=== PATIENT | male | born 1940 | race Caucasian/White ===

== ENCOUNTER → 2019-08-24 | Outpatient (CLI) | payer OTHER ==
[~2019-08-24] MED LIST: ADVIL200 M1 PO; ASPIR 8181 MG PO; ASPIRIN325 PO; COQ-10100 MG PO; COZAAR 50 MG TA50 M2 PO; FLOMAX0.4 MG PO; LIPITOR 20 MG T20 M1 PO; LISINOPRIL20 MG PO; PLAVIX 75 MG TA75 M1 PO; TOPROL XL25 MG PO
== END ==
LOC: SJCVC 08:00
PROVIDERS: ATTEND Nuclear Medicine Nuclear Cardiology
DX: I25.10 Atherosclerotic heart disease of native coronary artery without angina pectoris (principal); I73.9 Peripheral vascular disease, unspecified; I12.9 Hypertensive chronic kidney disease with stage 1 through stage 4 chronic kidney disease, or unspecified chronic kidney disease; N18.9 Chronic kidney disease, unspecified; E78.00 Pure hypercholesterolemia, unspecified; Z96.653 Presence of artificial knee joint, bilateral; Z79.899 Other long term (current) drug therapy

== ENCOUNTER 2019-09-03 10:08 | Inpatient (IN) | payer OTHER ==
[~2019-09-03] VITALS: Ht 177.8 cm; Wt 91.6 kg
[~2019-09-03 10:08] MED LIST changes: -ADVIL200 M1 PO; -ASPIR 8181 MG PO; -COQ-10100 MG PO; -FLOMAX0.4 MG PO
[2019-09-03 10:46] LABS: HEMATOCRIT 44.6 % (42.0-52.0); HEMOGLOBIN 14.9 gm/dL (14.0-18.0); MCH 29.7 pg (26.0-34.0); MCHC 33.5 g/dL (28.0-37.0); MCV 88.9 fL (80.0-100.0); RBC 5.01 mil/uL (4.50-6.00); RDW 13.8 % (10.5-14.5); WBC 8.7 thou/uL (4.0-11.0)
[2019-09-03 10:50] VITALS: BP 118/77
[2019-09-03 10:56] LABS: CALCIUM 9.4 mg/dL (8.5-10.1); CREATININE 1.7 mg/dL (0.7-1.3); POTASSIUM 4.1 mmol/L (3.5-5.1)
--- NOTE | 2019-09-03 10:57 | EKG ---
[facility] [place] [address] ELECTROCARDIOGRAM REPORT Name: RADHA MEDEROSWAYNE Room #: REG ELAYNE Esteban#: [id number] Admission: 09/03/19 Attend Phys: Wallace Urban MD, Discharge: Date of : 38 Report #: [id number] THIS REPORT FOR: cc: Radhames Garcia,Artem Fernando MD ~ THIS REPORT FOR: //name// [facility] Test Date: 2019-09-03 Test Time: 10:38:44 Pat Name: YUDELKA MEDEROS Department: Room: Gender: Loss Prevention Investigator: Amarilis BATEMAN : 1940 Requested By: Wallace Urban Order Number: [id number] MD: Artem Collazo Measurements Intervals [place] Rate: 69 P: 10 WI: 216 QRS: 6 QRSD: 97 T: -8 QT: 388 QTc: 416 Interpretive Statements Sinus rhythm Multiple ventricular premature complexes Borderline prolonged WI interval Borderline T abnormalities, inferior leads Compared to ECG 02/01/2015 07:53:34 Ventricular premature complex(es) now present T-wave abnormality now present Myocardial infarct finding no longer present Electronically Signed On 09-03-2019 10:56:27 CDT by Artem Collazo [email or web address] <ELECTRONICALLY SIGNED> By: Artem Collazo MD 09/03/19 1056 1038 1038 Artem Collazo MD /EPI
[2019-09-03] MEDS ORDERED: COQ-10100 MG PO (11:31)
[2019-09-03 14:38] LABS: HEMATOCRIT 42.2 % (42.0-52.0); HEMOGLOBIN 14.2 gm/dL (14.0-18.0); MCHC 33.7 g/dL (28.0-37.0); MCV 89.1 fL (80.0-100.0); RBC 4.74 mil/uL (4.50-6.00); WBC 7.8 thou/uL (4.0-11.0)
[2019-09-03 14:51] LABS: INR 1.1; PROTIME 10.9 Seconds (9.3-11.4)
--- NOTE | 2019-09-03 15:23 | NUR ---
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 A&OX4, EDUCATION GIVEN ON RESTRICTIONS, WATER READY, AWAITING ORDERS FOR DIET. SEE FLOW SHEET FOR VS. IVF TO RUN AND PT ABLE TO BE UP ANYTIME AFTER 515PM. SEE SEPARATE INTERVENTIONS FOR ASSESSMENTS, SCRATCH ON LLE FROM A FALL
[2019-09-03 15:25] VITALS: BP 154/76
[2019-09-03] MEDS ORDERED: ADVIL200 M1 PO (15:42)
[2019-09-03 20:55] VITALS: BP 143/70
[2019-09-03 23:48] VITALS: BP 152/82
[2019-09-04 03:56] VITALS: BP 136/86
--- NOTE | 2019-09-04 05:03 | NUR ---
ASSUMED PT CARE AT 1900. PT IS ALERT AND ORIENTED. PT IS PLESANT. PT IS STABLE. RIGHT GROIN SITE INTACT. DENIES ANY PAIN. PT VERBALIZED NAUSEA. NAUSEA MEDICATION ADMNISTERED TO PT. ASSESSMENT COMPLETED AND DOCUMENTED. SCHEDULED MEDS ADMINISTERED TO PT. CONTINUE TO MONITOR PT.
[2019-09-04 05:23] LABS: HEMATOCRIT 40.7 % (42.0-52.0); HEMOGLOBIN 13.8 gm/dL (14.0-18.0); MCH 30.2 pg (26.0-34.0); MCHC 33.9 g/dL (28.0-37.0); MCV 89.2 fL (80.0-100.0); RBC 4.56 mil/uL (4.50-6.00); RDW 13.8 % (10.5-14.5); WBC 10.7 thou/uL (4.0-11.0)
[2019-09-04 05:40] LABS: CALCIUM 8.7 mg/dL (8.5-10.1); CREATININE 1.4 mg/dL (0.7-1.3); POTASSIUM 3.9 mmol/L (3.5-5.1)
[2019-09-04 08:00] VITALS: BP 145/75
[2019-09-04 12:00] VITALS: BP 127/79
--- NOTE | 2019-09-04 12:14 | EKG ---
[facility] [place] [address] ELECTROCARDIOGRAM REPORT Name: YUDELKA MEDEROS Room #: [facility] M.R.#: [id number] Admission: 09/03/19 Attend Phys: Wallace Urban MD, Discharge: Date of : 38 Report #: [id number] THIS REPORT FOR: cc: Radhames Garcia James L. DO Couchonnal, Luis F. 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
[2019-09-04 16:22] VITALS: BP 126/72
--- NOTE | 2019-09-04 16:48 | NUR ---
RECEIVED PT'S CARE AROUND 0735; PT. ON BED; SLEEP INTERRUMPTED DURING SHIFT CHANGE; DURING AM ASSESSMENT PT. AOX4; NO C/O PAIN; AM MEDICATIONS GIVEN; EDUCATED ABOUT FALL PREVENTIONS; ST. UNDERSTANDING; HOSPITAL SUCKS PROVIDED; C/O SOME CONSTIPATION; ACCOUNT ADJUSTER RESERVATIONS SALES AGENT NOTIFIED; ORDERS RECEIVED; HEPARING GTT ADJUSTED PER PROTOCOL; MONITORING; SR ON THE MONITOR; MRSA NEGATIVE; ASSESSMENT CHARGED; FOLLOWING POC; WILL PASS ON REPORT;
[2019-09-04 20:33] VITALS: BP 142/75
[2019-09-05] VITALS: BP 124/58
[2019-09-05 04:50] VITALS: BP 164/82
--- NOTE | 2019-09-05 06:25 | NUR ---
PATIENTS CARES WERE ASSUMED AT SHIFT CHANGE. PATIENT WAS ASSESSED AND MEDS WERE PASSED. PATIENT CONTINUES ON A HEPIRINE GTT. HIS APTT THIS MORNING WAS 62.2. NO CHANGES NEEDED AT THIS TIME. PATIENT GETS VERY TACHY WALKING TO THE RESTROOM. ENCOURAGED HIM TO USE THE URINAL AT THIS TIME. HOURLY ROUNDS WERE HOLLIS. THE BED IS IN A LOW AND LOCKED POSITION.
[2019-09-05 07:58] VITALS: BP 131/59
--- NOTE | 2019-09-05 08:15 | HC ---
[facility] [place] [address] CONSULTATION Name: YUDELKA MEDEROS Room #: [address] [place] [address] ELAYNE Wick#: [id number] Admission: 09/03/19 Attend Phys: Wallace Urban MD, Discharge: Date of : 38 Report #: [id number] THIS REPORT FOR: cc: Radhames Garcia,Nico Cook MD ~ CC: Bobby Garcia DATE OF SERVICE: 09/03/2019 We were asked by Dr. Mccormack to see the patient. HISTORY OF PRESENT ILLNESS: The patient is an 79-year-old who had cardiac and carotid catheterization today. Carotid angiogram reveals a 99% right internal carotid stenosis with very slow flow. The patient has a history of coronary artery disease and had a myocardial infarct 5 years ago with stent placement. Recently, the patient has been feeling weak and tired and workup began with Dr. Garcia and Teddy and culminated in the catheterization. We note that cardiac catheterization was also done and this does not show any significant coronary artery disease. PAST MEDICAL HISTORY: Significant for hypertension. The patient is treated for elevated cholesterol. He denies diabetes mellitus. MEDICATIONS: Aspirin, metoprolol, rosuvastatin and CoQ10. ALLERGIES: Denies. PAST SURGICAL HISTORY: Status post total knee replacement, bilateral. SOCIAL HISTORY: The patient is a denis in [place], lives with his . Never smoker. FAMILY HISTORY: Noncontributory. REVIEW OF SYSTEMS: GENERAL: We note generalized fatigue. No fever, chills, weight change. EYES: No vision change. HENT: No headache, no hearing loss. No sinus problems. CARDIAC: Denies angina or palpitations. VASCULAR: No claudication. GASTROINTESTINAL: No nausea, vomiting, diarrhea, or blood. GENITOURINARY: No urgency, frequency, or blood. RESPIRATORY: No cough, no hemoptysis. [facility] [address] [place] [address] CONSULTATION Name: RADHA MEDEROSWAYNE Room #: [address] [place] [address]#: [id number] Admission: 09/03/19 Attend Phys: Wallace Urban MD, Discharge: Date of : 38 Report #: [id number] MUSCULOSKELETAL: No new joint or bone pain. SKIN: No rash or infection. NEUROLOGIC: Denies stroke, TIA, motor or sensory dysfunction. HEMATOLOGIC: No easy bruising. No bleeding. PHYSICAL EXAMINATION: VITAL SIGNS: The patient is lying in bed after cardiac catheterization. Blood pressure 132/90, heart rate 68. HEENT: Normocephalic. Pupils are round, equal. No scleral icterus, no arcus. NECK: No mass. I do not hear any bruit. CHEST: Clear to auscultation. HEART: Rhythm regular. Heart tones are distant. No murmur audible. ABDOMEN: Soft, no mass, no tenderness. EXTREMITIES: No clubbing, cyanosis or edema. VASCULAR: 2+ dorsalis pedis and posterior tibial pulses. MUSCULOSKELETAL No bone or joint asymmetry or deformity. NEUROLOGIC: No motor or sensory dysfunction. I reviewed the cardiac and vascular study results with the patient. There was a very high-grade right internal carotid stenosis lesion with slow flow. We have recommended that the patient stay and be started on IV heparin with surgery on Friday. Risks and details of carotid endarterectomy were discussed. Options and alternatives were reviewed. The patient and understand with this approach and agree. We will make arrangements for surgery Friday and keep the patient on IV heparin and aspirin until then. Thank you for the consult. <ELECTRONICALLY SIGNED> By: Nico Camarillo MD 09/05/19 0815 1505 1550 Nico Camarillo MD /nt
[2019-09-05 11:11] VITALS: BP 133/69
[2019-09-05 15:30] VITALS: BP 137/77
--- NOTE | 2019-09-05 16:21 | NUR ---
PT CARE ASSUMED APPROX 0700. ASSESSMENT CHARTED. DENIES PAIN AND SOA. VSS. UP WITH SBA. STEADY GAIT. TOLERATING POC. DENIES QUESTIONS OR CONCERNS REGARDING POC. MAINTAINING HEP GTT. NO DISTRESS NOTED.
[2019-09-05 19:55] VITALS: BP 149/75
[2019-09-06] VITALS (7 sets, daily range): BP systolic 77–155; BP diastolic 39–70
[2019-09-06 05:13] LABS: HEMATOCRIT 43.4 % (42.0-52.0); HEMOGLOBIN 14.5 gm/dL (14.0-18.0); MCHC 33.5 g/dL (28.0-37.0); MCV 89.7 fL (80.0-100.0); RBC 4.84 mil/uL (4.50-6.00); WBC 11.9 thou/uL (4.0-11.0)
--- NOTE | 2019-09-06 07:35 | NUR ---
PATIENTS CARES WERE ASSUMED AT SHIFT CHANGE, PAITENT WAS ASSESSED AND MEDS ERE PASSED. PATIENT DID SLEEP MOST OF THIS SHIFT. PATIENT WAS PICKED UP FOR SURGERY AT 0630. PATIENT IS NOW OFF THE FLOOR
--- NOTE | 2019-09-06 15:00 | NUR ---
URINE OUTPUT LOW. IRRIGATED FREDERICK, NO ADDITIONAL URINE OUTPUT AT THIS TIME.
--- NOTE | 2019-09-06 15:19 | NUR ---
report received from family law attorney. received in icu #242 post R CEA per icu bed. neuro and motor intact, SB, sbp in upper 70's, call placed to YONY Jessica with order received for ns 250cc. bp per tre increased to 90. order received for kehinde to keep sbp>[address] Camarillo. taking deep breaths/cough, npo, doshi with adequate urine output. Dr. Camarillo called and spoke with . both YONY Jessica and Dr. Camarillo rounded at bedside.
--- NOTE | 2019-09-06 19:10 | NUR ---
PER PHONE CALL TO DR. SAPP REGARDING PT'S LOW URINE OUTPUT, PT ENCOURAGED TO DRINK. TOLERATING. SEE REGULAR DIET ORDER RECEIVED PER DR. SAPP. THEN WHEN PT HAD HIS PM MEAL, HE CONSUMED A FEW BITES OF PEARS & BECAME NAUSEATED. ZOFRAN IV GIVEN WITH RELIEF, SEE MARS. NOW, AT 1910, NO URINE OUTPUT. DR. SAPP UPDATED, HE REQUESTED A BLADDER SCAN. GARFIELD FRANCE RN PRESENT, UPDATED.
--- NOTE | 2019-09-06 20:00 | NUR ---
250 CC ALBUNIN HUNG FOR LOW UO
--- NOTE | 2019-09-06 22:45 | NUR ---
BLADDER SCAN SHOW 0 URINE. ALBUMIN 250 CC REPEATED PER ORDER DR SAPP WILL FOLLOW AURA LASIX 10 MG IV
[2019-09-07] VITALS (8 sets, daily range): BP systolic 91–115; BP diastolic 42–87
--- NOTE | 2019-09-07 02:00 | NUR ---
DIURECING WELL. PT RESTING QUIETLY
--- NOTE | 2019-09-07 06:00 | NUR ---
PT AWAKE AND ALERT BATHED UP TO CARDIAC CHAIR. DENIES PAIN NOR DIZZINESS NEURO INTACT. 850 CC UO THIS SHIFT. DIURECED WELL RIGHT CAROTID DRESSING INTACT WITH OLD DRIED DRAIMAGE. NACHO INTACT. SINUS SANDRA. WILL CONT TO MONITOR.
[2019-09-07 06:26] LABS: MCH 29.9 pg (26.0-34.0); MCHC 33.3 g/dL (28.0-37.0); MCV 89.9 fL (80.0-100.0); RBC 3.89 mil/uL (4.50-6.00); RDW 13.9 % (10.5-14.5); WBC 15.1 thou/uL (4.0-11.0)
[2019-09-07 06:31] LABS: CALCIUM 8.1 mg/dL (8.5-10.1); CREATININE 1.5 mg/dL (0.7-1.3); HEMOGLOBIN 11.6 gm/dL (14.0-18.0); POTASSIUM 4.5 mmol/L (3.5-5.1)
[2019-09-07] MEDS ORDERED: ASPIR 8181 MG PO (07:26)
--- NOTE | 2019-09-07 09:09 | EKG ---
[facility] [place] [address] ELECTROCARDIOGRAM REPORT Name: YUDELKA MEDEROS Room #: 242- ADM IN M.R.#: [id number] Admission: 09/03/19 Attend Phys: Wallace Urban MD, Discharge: Date of : 38 Report #: [id number] THIS REPORT FOR: cc: Radhames Garcia,Radhames Sinclair,Rafael Hernandez MD [facility] ~ THIS REPORT FOR: //name// [facility] Test Date: 2019-09-06 Test Time: 17:50:46 Pat Name: YUDELKA MEDEROS Department: Room: 242 Gender: M Program Scheduler: Ilir GARCIA : 1940 Requested By: Kenneth Gross Order Number: [id number] MD: Rafael Lara Measurements Intervals [place] Rate: 58 P: 2 KS: 202 QRS: -12 QRSD: 95 T: -8 QT: 434 QTc: 427 Interpretive Statements Sinus rhythm Inferior infarct, old Baseline wander in lead(s) I,III,aVL Compared to ECG 09/04/2019 07:21:28 Ventricular premature complex(es) no longer present Electronically Signed On 09-07-2019 9:08:01 CDT by Rafael Lara [email or web address] <ELECTRONICALLY SIGNED> By: Rafael Lara MD, FACC 09/07/19907 49 49 Rafael Lara MD, [facility] /EPI
--- NOTE | 2019-09-07 09:30 | NUR ---
chart review. noted pt up in recliner chair, eating breakfast. CENTER HUMAN RESOURCES MANAGER here and rounding on pt as well. will cont following as needed for dc needs.
--- NOTE | 2019-09-07 16:07 | PATH ---
[facility] [address] [place] [address] PATHOLOGY RPT PROCEDURE Name: ELIAS CORLEY Room #: 215-P ADM IN M.R.#: [id number] Admission: 09/03/19 Date of : 38 Discharge: Report #: [id number] Path Case #: [id number] [facility] Accession Number: [id number] . 01 Material submitted: . carotid body - RIGHT CAROTID PLAQUE. Modifiers: right . 01 Clinical history: . CAD involving king salmon coronary artery of king salmon heart without angina pectoralis, carotid stenosis . 02 Diagnosis: Right carotid plaque, endarterectomy: - Fragments of calcified atherosclerotic plaque material. . (IUV:mml; 09/07/2019) QLM 09/07/2019 1253 Local . 02 Electronically signed: . Taisha Dejesus MD, Pathologist NPI- [id number] . 01 Gross description: . The specimen is received in formalin, labeled "Elias Corley, right carotid plaque" and consists of a segment of yellow dupont rubbery to calcified tissue measuring 2.4 x 1.5 x 0.6 cm. Sectioning reveals an almost entirely occluded/calcified lumen. Blender Operator sections are submitted in A1 following decalcification. (SDY; 09/06/2019) SYU/SYU 09/06/2019 1705 Local . 02 Pathologist provided ICD-10: I65.21 . 02 CPT . 181328, [id number] Specimen Comment: A courtesy copy of this report has been sent to [phone] Specimen Comment: [phone], Specimen Comment: Report sent to ,DR ALMARAZ,DR ABARCA / DR LOYA Performed at: [address] [id number] MD Cristobal Hurtado MD Phone: [phone] Performed at: [address] [id number] [address] [address] PATHOLOGY RPT PROCEDURE Name: ELIAS CORLEY Room #: 215-P [facility] IN M.R.#: [id number] Admission: 09/03/19 Date of : 38 Discharge: Report #: [id number] Path Case #: [id number] MD Taisha Vadlamani MD Phone: [phone]
--- NOTE | 2019-09-07 16:12 | NUR ---
ASSUMED CARE PT SHIFT CHANGE. ASSESSMENTS CHARTED. MEDS GIVEN PER AUG. PT ALERT AND ORIENTED. VSS. O2 SATS WNL ON ROOM AIR. PT UP SBA TOLERATING VERY WELL. APPETITE ADEQUATE, PT TOLERATING MEALS WELL. YONY CARBALLO WITH CTS REMOVED NACHO DRESSING ON RIGHT SIDE NECK, GAUZE AND TRANSPARENT DRESSING APPLIED. DRIED DRAINAGE NOTED THROUGHOUT THE SHIFT. ORDERS TO REMOVED CATHETER AND ART LINE ACKNOWLEDGED AND IMPLEMENTED. CATHETER REMOVED AT APPROX 1015, AT APPROX 1445 PT HAD STILL NOT URINATED SINCE THE REMOVAL OF FREDERICK. CTS NOTIFIED, ORDERS RECEIVED FOR TRANSFER. ART LINE SUCCESSFULLY REMOVED, DRESSING APPLIED. PT C/O FEELING CONSTIPATED. MIRALAX GIVEN PER AUG. PT SUCCESSFUL IN PASSING SMALL BOWEL MOVEMENT. REPORT GIVEN TO NURSE, PT TRANSFERRED TO AT APPROX 1550. PT LEFT WITH ALL BELONGINGS.
--- NOTE | 2019-09-07 16:35 | NUR ---
PT. ARRIVED AT FLOOR AROUND 1600; AOX4; NO C/O PAIN; ST. FEELING SOME CONSTIPATION; PRN MEDICATION GIVEN; SR ON THE MONITOR; EDUCATED ABOUT CALLING BEFORE GETTING UP FROM BED TO AVOID FALLS; ST. UNDERSTANDING; EDUCATED ABOUT FALL PREVENTIONS; ST. UNDERSTANDING; NOT VOID AFTER D/C FREDERICK & BEING TRANSFER TO CCU; MONITORING; EDUCATED ABOUT BLADDER SCANNER; ST. UNDERSTANDING; MONITORING; ASSESSMENT CHARGED; FOLLOWING POC; WILL PASS ON REPORT;
[2019-09-08 00:33] VITALS: BP 116/64
[2019-09-08 04:45] VITALS: BP 109/65
[2019-09-08 07:23] VITALS: BP 111/58
[2019-09-08] MEDS ORDERED: FLOMAX0.4 MG PO (07:28)
--- NOTE | 2019-09-08 07:34 | NUR ---
ASSUMED PT CARE AT 1900, PT IS ALERT AND ORIENTEDX4, SR ON THE MONITOR, ASESSMENTS CHARTED, PT ABLE TO VOID OK THROUGH THE NIGHT, DRESSING TO THE RIGHT NECK WITH SMALL SEROSANGUINOUS DRAINAGE, HAD A SMALL BM, DENIES PAIN OR SOB, RESTED WELL THROUGH THE NIGHT
[2019-09-08 10:37] VITALS: BP 111/58
--- NOTE | 2019-09-08 10:44 | NUR ---
RECEIVED PT'S CARE AROUND 0710; PT. ON BED; AOX4; DURING AM ASSESSMENT C/O SORE THROAT; PRN PAIN MEDICATION GIVEN WITH AM MEDICATIONS; ABLE TO HAVE A BM LAST NIGHT; 09/07/2019; ST. FEELING SOME CONSTIPATION; REQUESTED PRN MEDICATION; MEDICATION GIVEN WITH BREAKFAST; EDUCATED ABOUT FALL PREVENTIONS; ST. UNDERSTANDING; REQUESTED TO BRUSH TEETH; UTENSILS PROVIDED; UP ON THE CHAIR; D/C ORDERS ON PLACED; PT. NOTIFIED AND EDUCATED ABOUT D/C PROCESS; ST. UNDERSTANDING; ASSESSMENT CHARGED; FOLLOWED POC; WORKING ON D/C ORDERS;
--- NOTE | 2019-09-09 19:49 | O ---
[facility] [place] [address] OPERATIVE REPORT Name: YUDELKA MEDEROS Room #: 215-P [facility] IN M.R.#: [id number] Admission: 09/03/19 Attend Phys: Wallace Urban MD, Discharge: 09/08/19 Date of : 38 Report #: [id number] THIS REPORT FOR: cc: Radhames Garcia,Nico Cook MD ~ CC: Bobby Garcia DATE OF SERVICE: 09/06/2019 PREOPERATIVE DIAGNOSIS: Right carotid artery stenosis. POSTOPERATIVE DIAGNOSIS: Right carotid artery stenosis. OPERATION: Right carotid endarterectomy with patch closure. SURGEON: Nico Camarillo MD OUTSIDE SOLAR SALES CONSULTANT: YONY Pinon. ANESTHESIA: General. INDICATIONS: The patient is an 79-year-old with a 99% right carotid stenosis found at arteriography, the left side has trivial disease. The patient has been asymptomatic. FINDINGS AND TECHNIQUE: After general anesthesia was established, exposure was obtained through an oblique neck incision. Common facial vein was divided. Common internal and external carotid arteries were identified and controlled. 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 This was also controlled separately. 10,000 units of heparin were given. The carotid vessels were occluded. Continuous electroencephalographic monitoring was performed and the carotid vessels were occluded. There was no change in the EEG. The carotid arteriotomy was made. The endarterectomy was performed without creating a distal flap. Neointima was inspected and all loose debris was removed. Tacking sutures were placed at the transition zone. When the endarterectomy was deemed to be satisfactory the carotid arteriotomy was closed with running Prolene and a thin walled pericardial patch. Prior to finishing the closure, the carotid vessels were backbled and the artery was [facility] [address] [place] [address] OPERATIVE REPORT Name: ROSA MYUDELKA Oliveira Room #: 215-P [facility] IN [place].#: [id number] Admission: 09/03/19 Attend Phys: Wallace Urban MD, Discharge: 09/08/19 Date of : 38 Report #: [id number] irrigated with heparinized saline. Flow was established first through the external, then the internal carotid artery. 50 mg of protamine was given to reverse the heparin. Hemostasis was ascertained. A drain was brought out through the bottom pole of the incision and when hemostasis was satisfactory, the wound was closed in layers. The patient was taken to the recovery area in good condition having tolerated the procedure well and there, his neurologic progress was monitored. All counts were reported as correct. <ELECTRONICALLY SIGNED> By: Nico Camarillo MD 09/09/19 1949 1150 1207 Nico Camarillo MD /nt
== END 2019-09-08 11:10 | disposition home or self-care (01) | DRG 38 ==
LOC: CATH 10:08 → 2N 15:45 → ICU 15:46 → 2N 15:46 → CATH 15:46 → 2N 09-06 11:55 → ICU 09-06 13:27 → 2N 09-07 16:02
PROVIDERS: Nurse Practitioner Adult Health; Physician Assistant; ADMIT Internal Medicine Cardiovascular Disease
PROC: B3151ZZ Fluoroscopy of Bilateral Common Carotid Arteries using Low Osmolar Contrast (ICD-10-PCS; principal; 2019-09-03)
PROC: B4181ZZ Fluoroscopy of Bilateral Renal Arteries using Low Osmolar Contrast (ICD-10-PCS; principal; 2019-09-03)
PROC: B3121ZZ Fluoroscopy of Left Subclavian Artery using Low Osmolar Contrast (ICD-10-PCS; principal; 2019-09-03)
PROC: B41D1ZZ Fluoroscopy of Aorta and Bilateral Lower Extremity Arteries using Low Osmolar Contrast (ICD-10-PCS; principal; 2019-09-03)
PROC: B31N1ZZ Fluoroscopy of Other Upper Arteries using Low Osmolar Contrast (ICD-10-PCS; principal; 2019-09-03)
PROC: B31 Imaging, Upper Arteries, Fluoroscopy (ICD-10-PCS; principal; 2019-09-03)
PROC: 03CK0ZZ Extirpation of Matter from Right Internal Carotid Artery, Open Approach (ICD-10-PCS; 2019-09-06)
PROC: 03UK0KZ Supplement Right Internal Carotid Artery with Nonautologous Tissue Substitute, Open Approach (ICD-10-PCS; 2019-09-06)
DX: I65.21 Occlusion and stenosis of right carotid artery (principal); D62 Acute posthemorrhagic anemia; I25.10 Atherosclerotic heart disease of native coronary artery without angina pectoris; E78.00 Pure hypercholesterolemia, unspecified; Z96.653 Presence of artificial knee joint, bilateral; I10 Essential (primary) hypertension; E78.5 Hyperlipidemia, unspecified; K59.00 Constipation, unspecified; I25.2 Old myocardial infarction; Z95.5 Presence of coronary angioplasty implant and graft; Z79.82 Long term (current) use of aspirin; Z79.899 Other long term (current) drug therapy; R33.9 Retention of urine, unspecified
CPT/HCPCS: 10078; 10081; 47375; 48888; 50010; 50101; 50386; 50417; 50455; 51301; 52279; 52287; 54118; 56524; 56526; 56528; 56531; 56534; 57254; 62110; 62900; 70005

== ENCOUNTER → 2019-10-14 | Outpatient (CLI) | payer OTHER ==
[~2019-10-14] MED LIST changes: +ADVIL200 M1 PO; +ASPIR 8181 MG PO; +COQ-10100 MG PO; +FLOMAX0.4 MG PO
== END ==
LOC: SJCVCIMAG 07:17
DX: I25.10 Atherosclerotic heart disease of native coronary artery without angina pectoris (principal); I65.23 Occlusion and stenosis of bilateral carotid arteries; E78.00 Pure hypercholesterolemia, unspecified; R60.0 Localized edema; I12.9 Hypertensive chronic kidney disease with stage 1 through stage 4 chronic kidney disease, or unspecified chronic kidney disease; N18.9 Chronic kidney disease, unspecified; Z98.890 Other specified postprocedural states

== ENCOUNTER → 2020-04-25 | Outpatient (CLI) | payer OTHER | LOC: SJCVCIMAG 12:41 | PROVIDERS: ATTEND Internal Medicine Cardiovascular Disease | DX: I65.23 Occlusion and stenosis of bilateral carotid arteries (principal); R94.31 Abnormal electrocardiogram [ECG] [EKG]; I25.10 Atherosclerotic heart disease of native coronary artery without angina pectoris; E78.00 Pure hypercholesterolemia, unspecified; I77.9 Disorder of arteries and arterioles, unspecified; I12.9 Hypertensive chronic kidney disease with stage 1 through stage 4 chronic kidney disease, or unspecified chronic kidney disease; N18.9 Chronic kidney disease, unspecified; Z98.890 Other specified postprocedural states; Z79.899 Other long term (current) drug therapy ==

== ENCOUNTER → 2020-11-30 | Outpatient (CLI) | payer OTHER | LOC: SJCVC 10:51 | PROVIDERS: ATTEND Internal Medicine Cardiovascular Disease | DX: R94.31 Abnormal electrocardiogram [ECG] [EKG] (principal); I25.10 Atherosclerotic heart disease of native coronary artery without angina pectoris; I77.9 Disorder of arteries and arterioles, unspecified; I10 Essential (primary) hypertension; E78.00 Pure hypercholesterolemia, unspecified; G20 Parkinson's disease; Z87.891 Personal history of nicotine dependence; Z79.82 Long term (current) use of aspirin; Z79.899 Other long term (current) drug therapy ==